=== PATIENT | female | born 1985 | race Caucasian/White ===

== ENCOUNTER 2016-12-29 23:46 | Inpatient (IN) | payer BC, OTHER ==
[2016-12-30] MEDS ORDERED: HYDROmorphone 0.5 MG/0.5 ML Syringe IVPUSH ONE ×2 (01:10→02:59)
[2016-12-30] MEDS ORDERED: Ondansetron 4 MG/2 ML SDV IVPUSH ONE (01:10)
[2016-12-30] MEDS ORDERED: Sodium Chloride 0.9% 1,000 ML IV SCH ×2 (01:15→03:00)
--- NOTE | 2016-12-30 01:38 | EDM.PDOC ---
ED HPI GENERAL MEDICAL PROBLEM - General Chief Complaint: Abdominal Pain Stated Complaint: RT LOWER ABD PAIN Time Seen by Provider: 12/30/16 00:50 Source of Information: Reports: Patient History Limitations: Reports: No Limitations - History of Present Illness INITIAL COMMENTS - FREE TEXT/NARRATIVE: pt started having rt lower abdomnal pain this am. This has been persistent during the day. She has vomited once just prior to arrival. She had a normal bm today. She does have a history of chrons but has not had any recent problem. 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 She does have a 99 temp tonight. ) HEENT: Reports: No Symptoms Respiratory: Reports: No Symptoms Cardiovascular: Reports: No Symptoms Endocrine: Reports: No Symptoms GI/Abdominal: Reports: Abdominal Pain, Nausea, Vomiting, Other (pt has pain in the rt lower abdoman. ) : Reports: No Symptoms Musculoskeletal: Reports: No Symptoms Skin: Reports: No Symptoms ED EXAM, GI/ABD - Physical Exam Exam: See Below Text/Narrative:: pt arrived with rt lower abdomanal pain. She has vomited once. She states this started this am and has gotten worse. Exam Limited By: No Limitations General Appearance: Alert, Moderate Distress Eyes: Bilateral: Normal Appearance, EOMI Ears: Normal TMs Nose: Normal Inspection Throat/Mouth: Normal Inspection Head: Atraumatic Neck: Normal Inspection Respiratory/Chest: No Respiratory Distress Cardiovascular: Regular Rate, Rhythm GI/Abdominal: Tenderness, Rebound (Female) Exam: Deferred Rectal (Female) Exam: Deferred Back Exam: Normal Inspection Extremities: Normal Inspection Neurological: Alert, Oriented, Normal Cognition Psychiatric: Normal Affect Course - Vital Signs Last Recorded V/S: Last Vital Signs Temp 37.3 C 12/30/16 00:43 Pulse 92 12/30/16 03:05 Resp 16 12/30/16 03:05 BP 131/76 12/30/16 03:05 Pulse Ox 94 L 12/30/16 03:05 - Orders/Labs/Meds Orders: Active Orders 24 hr Category Date Time Status Abdomen Pelvis w Cont [CT] Stat Exams 12/30/16 01:29 Ordered Sodium Chloride 0.9% [Normal Saline] 1,000 ml Med 12/30/16 01:15 Active IV ASDIRECTED Sodium Chloride 0.9% [Normal Saline] 1,000 ml Med 12/30/16 03:00 Active IV ASDIRECTED Medication Orders Sodium Chloride (Normal Saline) 1,000 mls @ 999 mls/hr IV ASDIRECTED CORAZON Last Admin: 12/30/16 01:38 Dose: 999 mls/hr Sodium Chloride (Normal Saline) 1,000 mls @ 250 mls/hr IV ASDIRECTED CORAZON Last Admin: 12/30/16 02:59 Dose: 250 mls/hr Labs: Laboratory Tests 12/30/16 12/30/16 12/30/16 Range/Units 00:34 00:34 00:34 WBC 14.9 H (4.5-11.0) K/uL RBC 4.41 (3.30-5.50) M/uL Hgb 12.4 (12.0-15.0) g/dL Hct 36.7 (36.0-48.0) % MCV 83 (80-98) fL MCH 28 (27-31) pg MCHC 34 (32-36) % Plt Count 198 (150-400) K/uL Neut % (Auto) 80 H (36-66) % Lymph % (Auto) 9 L (24-44) % Eagle % (Auto) 10 H (2-6) % Eos % (Auto) 1 L (2-4) % Baso % (Auto) 0 (0-1) % Sodium 138 L (140-148) mmol/L Potassium 3.7 (3.6-5.2) mmol/L Chloride 105 (100-108) mmol/L Carbon Dioxide 25 (21-32) mmol/L Anion Gap 11.7 (5.0-14.0) mmol/L BUN 12 (7-18) mg/dL Creatinine 0.7 (0.6-1.0) mg/dL Est Cr Clr Drug Dosing 99.63 mL/min Estimated GFR (MDRD) > 60 (>60) Glucose 114 H (74-106) mg/dL Calcium 8.3 L (8.5-10.1) mg/dL Total Bilirubin 0.6 (0.2-1.0) mg/dL AST 11 L (15-37) U/L ALT 15 (12-78) U/L Alkaline Phosphatase 45 L (46-116) U/L C-Reactive Protein 3.53 H (0.0-0.3) mg/dL Total Protein 7.2 (6.4-8.2) g/dL Albumin 3.6 (3.4-5.0) g/dL Globulin 3.6 H (2.3-3.5) g/dL Albumin/Globulin Ratio 1.0 L (1.2-2.2) Urine Color Urine Appearance Urine pH (4.5-8.0) Ur Specific [place] (1.008-1.030) Urine Protein (NEGATIVE) mg/dL Urine Glucose (UA) (NEGATIVE) mg/dL Urine Ketones (NEGATIVE) mg/dL Urine Occult Blood (NEGATIVE) Urine Nitrite (NEGATIVE) Urine Bilirubin (NEGATIVE) Urine Urobilinogen (NORMAL) mg/dL Ur Leukocyte Esterase (NEGATIVE) Urine RBC (0-5) Urine WBC (0-5) Ur Epithelial Cells Amorphous Sediment Urine Bacteria Urine Mucus Urine HCG, Qual 12/30/16 12/30/16 Range/Units 01:16 01:57 WBC (4.5-11.0) K/uL RBC (3.30-5.50) M/uL Hgb (12.0-15.0) g/dL Hct (36.0-48.0) % MCV (80-98) fL MCH (27-31) pg MCHC (32-36) % Plt Count (150-400) K/uL Neut % (Auto) (36-66) % Lymph % (Auto) (24-44) % Eagle % (Auto) (2-6) % Eos % (Auto) (2-4) % Baso % (Auto) (0-1) % Sodium (140-148) mmol/L Potassium (3.6-5.2) mmol/L Chloride (100-108) mmol/L Carbon Dioxide (21-32) mmol/L Anion Gap (5.0-14.0) mmol/L BUN (7-18) mg/dL Creatinine (0.6-1.0) mg/dL Est Cr Clr Drug Dosing mL/min Estimated GFR (MDRD) (>60) Glucose (74-106) mg/dL Calcium (8.5-10.1) mg/dL Total Bilirubin (0.2-1.0) mg/dL AST (15-37) U/L ALT (12-78) U/L Alkaline Phosphatase (46-116) U/L C-Reactive Protein (0.0-0.3) mg/dL Total Protein (6.4-8.2) g/dL Albumin (3.4-5.0) g/dL Globulin (2.3-3.5) g/dL Albumin/Globulin Ratio (1.2-2.2) Urine Color Yellow Urine Appearance Clear Urine pH 5.0 (4.5-8.0) Ur Specific [place] 1.020 (1.008-1.030) Urine Protein Negative (NEGATIVE) mg/dL Urine Glucose (UA) Normal (NEGATIVE) mg/dL Urine Ketones 15 H (NEGATIVE) mg/dL Urine Occult Blood Negative (NEGATIVE) Urine Nitrite Negative (NEGATIVE) Urine Bilirubin Small (NEGATIVE) Urine Urobilinogen Normal (NORMAL) mg/dL Ur Leukocyte Esterase Small (NEGATIVE) Urine RBC 0-5 (0-5) Urine WBC 0-5 (0-5) Ur Epithelial Cells Moderate Amorphous Sediment Not seen Urine Bacteria Moderate Urine Mucus Not seen Urine HCG, Qual Negative Meds: Medications Generic Name Dose Route Start Last Admin Trade Name Freq PRN Reason Stop Dose Admin Sodium Chloride 1,000 mls @ 999 mls/hr 12/30/16 01:15 12/30/16 01:38 Normal Saline IV 999 mls/hr ASDIRECTED CORAZON Administration Sodium Chloride 1,000 mls @ 250 mls/hr 12/30/16 03:00 12/30/16 02:59 Normal Saline IV 250 mls/hr ASDIRECTED CORAZON Administration Discontinued Medications Generic Name Dose Route Start Last Admin Trade Name Kate PRN Reason Stop Dose Admin Hydromorphone HCl 0.5 mg 12/30/16 01:10 12/30/16 01:42 Dilaudid IVPUSH 12/30/16 01:11 0.5 mg ONETIME ONE Administration Hydromorphone HCl 0.5 mg 12/30/16 02:59 12/30/16 03:03 Dilaudid IVPUSH 12/30/16 03:00 0.5 mg ONETIME ONE Administration Sodium Chloride 79 mls @ 3.9 mls/sec 12/30/16 01:45 12/30/16 02:07 Normal Saline IV 12/30/16 01:46 3.9 mls/sec ASDIRECTED STA Administration Iopamidol 128 ml 12/30/16 01:45 12/30/16 02:07 Isovue-300 (61%) IV 12/30/16 01:46 150 ml . DIRECTED STA Administration Ondansetron HCl 4 mg 12/30/16 01:10 12/30/16 01:46 Zofran IVPUSH 12/30/16 01:11 4 mg ONETIME ONE Administration - Re-Assessments/Exams Free Text/Narrative Re-Assessment/Exam: 12/30/16 02:09 wbc is elevated at 14,900. Her crp is 3.45. 12/30/16 03:20 cat scan revealed a acute apendicitis. Dr Marks will do her first case in the am. Departure - Departure Time of Disposition: 03:21 Disposition: Admitted As Inpatient 65 Condition: fair Clinical Impression: Acute appendicitis - Discharge Information Forms: ED Department Discharge Care Plan Goals: admit to Dr Marks - My Orders Last 24 Hours: My Active Orders 12/30/16 01:15 Sodium Chloride 0.9% [Normal Saline] 1,000 ml IV ASDIRECTED 12/30/16 01:29 Abdomen Pelvis w Cont [CT] Stat 12/30/16 03:00 Sodium Chloride 0.9% [Normal Saline] 1,000 ml IV ASDIRECTED - Assessment/Plan Last 24 Hours: My Active Orders 12/30/16 01:15 Sodium Chloride 0.9% [Normal Saline] 1,000 ml IV ASDIRECTED 12/30/16 01:29 Abdomen Pelvis w Cont [CT] Stat 12/30/16 03:00 Sodium Chloride 0.9% [Normal Saline] 1,000 ml IV ASDIRECTED
[2016-12-30] MEDS ORDERED: Iopamidol 612 MG/ML 150 ML Bottle IV STA (01:45)
[2016-12-30] MEDS ORDERED: HYDROmorphone/Normal Saline 15 MG/30 ML PCA IV SCH ×2 (04:15→07:30)
[2016-12-30] MEDS ORDERED: Ondansetron 4 MG/2 ML SDV IVPUSH PRN ×2 (04:16→09:30)
[2016-12-30] MEDS ORDERED: Ampicillin/Sulbactam Na 3 GM in Sodium Chloride 0.9% 100 ML IV SCH (04:30)
[2016-12-30] MEDS ORDERED: Bupivacaine 0.5%/EPINEPHrine 1:200,000 50 ML MDV ONE (06:40)
[2016-12-30] MEDS ORDERED: Ondansetron 4 MG/2 ML SDV ONE (07:02)
[2016-12-30] MEDS ORDERED: Midazolam 1 MG/ML 2 ML SDV ONE (07:02)
[2016-12-30] MEDS ORDERED: Rocuronium 50 MG/5 ML Vial ONE (07:02)
[2016-12-30] MEDS ORDERED: fentaNYL 250 MCG/5 ML SDV ONE (07:02)
[2016-12-30] MEDS ORDERED: Dexamethasone 4 MG/ML SDV ONE (07:02)
[2016-12-30] MEDS ORDERED: Neostigmine Methylsulfate 1 MG/ML 5 ML Syringe ONE (07:02)
[2016-12-30] MEDS ORDERED: Propofol 200 MG/20 ML SDV ONE (07:02)
[2016-12-30] MEDS ORDERED: Naloxone 0.4 MG/ML SDV IV PRN (07:24)
[2016-12-30] MEDS ORDERED: Lactated Ringers 1,000 ML ONE (07:29)
[2016-12-30] MEDS: Dextrose 5%-Lactated Ringers 1,000 ML IV SCH ×2 (10:37→19:39)
[2016-12-30] MEDS: Pantoprazole 40 MG Vial IV SCH (10:37)
[2016-12-30] MEDS: Ampicillin/Sulbactam Na 3 GM in Sodium Chloride 0.9% 100 ML IV SCH ×2 (12:03→18:03)
[2016-12-30] MEDS: Aztreonam/Dextrose-Water 1 GM in Premix Bag 1 BAG IV SCH ×2 (14:53→21:20)
[2016-12-31] MEDS: Ampicillin/Sulbactam Na 3 GM in Sodium Chloride 0.9% 100 ML IV SCH ×5 (00:05→23:17)
[2016-12-31] MEDS: Dextrose 5%-Lactated Ringers 1,000 ML IV SCH (03:19)
[2016-12-31] MEDS: Aztreonam/Dextrose-Water 1 GM in Premix Bag 1 BAG IV SCH ×3 (06:20→22:10)
[2016-12-31] MEDS: Acetaminophen/HYDROcodone 325-5 MG Tab PO PRN ×3 (10:06→22:08)
[2016-12-31] MEDS: Pantoprazole 40 MG Vial IV SCH (10:06)
[2016-12-31] MEDS: Bisacodyl 5 MG Tab PO SCH ×2 (10:07→22:08)
[2016-12-31] MEDS: Docusate Sodium 100 MG Cap PO SCH ×2 (10:07→22:08)
--- NOTE | 2016-12-31 11:01 | PN ---
DATE OF SERVICE: 12/31/2016 The patient has been afebrile with stable vital signs. No nausea has been noted overnight. We will begin a full-liquid diet today and advance to regular diet as tolerated. Start some Colace along with Dulcolax oral tablets. She may be ready for discharge home tomorrow. Sanket Marks MD /[id number]
[2016-12-31] MEDS ORDERED: Dextrose 5%-Lactated Ringers 1,000 ML IV SCH (11:45)
[2017-01-01] MEDS: Ampicillin/Sulbactam Na 3 GM in Sodium Chloride 0.9% 100 ML IV SCH (05:26)
[2017-01-01] MEDS: Aztreonam/Dextrose-Water 1 GM in Premix Bag 1 BAG IV SCH (05:27)
[2017-01-01 08:36] VITALS: BP 117/74
[2017-01-01] MEDS: Acetaminophen/HYDROcodone 325-5 MG Tab PO PRN (10:00)
[2017-01-01] MEDS ORDERED: Pantoprazole 40 MG Tab.CR PO SCH (10:00)
[2017-01-01] MEDS: Docusate Sodium 100 MG Cap PO SCH (10:01)
[2017-01-01] MEDS: Bisacodyl 5 MG Tab PO SCH (10:02)
--- NOTE | 2017-01-02 01:12 | DISCH ---
ADMISSION DIAGNOSIS: Acute appendicitis. DISCHARGE DIAGNOSES: Laparoscopic appendectomy for acute appendicitis. HISTORY: Lynda Quevedo developed right lower quadrant abdominal pain, presented to the ER after preoperative evaluation, discussion of possible risks and possible complications. She wished to proceed with some surgical procedure. HOSPITAL COURSE: Lynda had her surgery on 11/29/2016. She had no operative complications. On postop day 1, she was started on a diet and advanced as tolerated. She was changed to oral pain medication. On postop day 2, she was able to be discharged to home. Vital signs were stable. Activity was good and pain was well controlled. OBJECTIVE: GENERAL: Lynda Quevedo is a 31-year-old female. VITAL SIGNS: Height is 5 feet 4 inches. Weight is 192 pounds. TPR is 98.7, 86, 20, blood pressure 117/74. HEENT: Negative. NECK: Supple. HEART: Regular rate and rhythm. LUNGS: Clear. ABDOMEN: Incisions looked good. EDUARDO drain was draining a light serosanguineous drainage. This was discontinued, 4x4s placed over EDUARDO drain site. EXTREMITIES: Without peripheral edema. DISPOSITION: Discharged to home. CONDITION: Stable and improving. FOLLOWUP APPOINTMENTS: Marlene Monae PA-C on 01/09/2017 at 10:00 a.m. HOME MEDICATIONS: 1. Fombell 5/325 mg 1 to 2 every 4 hours p.r.n. pain #50. 2. Augmentin 875 mg 1 tablet b.i.d. for 5 days. 3. Colace 100 mg oral twice daily. 4. Zofran 4 mg ODT q.4 hours p.r.n. nausea. 5. Discontinue taking the tramadol. DIET AFTER DISCHARGE: Usual diet as tolerated. Drink 8 to 10 glasses of water a day. ACTIVITY: No lifting greater than 10 pounds for 2 weeks[address]riving, do not drive on pain medication. May shower. Notify provider if any fever, increased pain, nausea, or vomiting. Wound incision care. Keep site clean and dry. Wear abdominal binder for 2 weeks and as tolerated. Special instruction, use incentive spirometer 10 times every hour while awake for 2 weeks.
--- NOTE | 2017-01-04 14:43 | OR ---
DATE OF PROCEDURE: 12/30/2016 PREOPERATIVE DIAGNOSIS: Acute appendicitis. POSTOPERATIVE DIAGNOSES: 1. Acute appendicitis with marked inflammation and necrosis of adjacent cecal base. 2. Pericolonic/periappendiceal abscess. OPERATIVE PROCEDURE: Diagnostic laparoscopy with: 1. Partial cecectomy with removal of attached overlying appendix ([id number]). 2. Drainage of pericolonic/periappendiceal abscess ([id number]). ANESTHESIA: General. SKATE SHOP ATTENDANT: 1. Marlene Monae PA-C. 2. CONCHIS Mustafa student. INDICATIONS FOR PROCEDURE: This is a 31-year-old presenting overnight with a picture of acute appendicitis. A CT scan confirmed an inflamed appendicitis. Plan is to proceed with a diagnostic laparoscopy, laparotomy if needed and appendectomy with other procedures as indicated. Potential risks including bleeding, infection, leaks from various GI tract closures such as appendectomy stump, possibility of needing additional procedures beyond appendectomy depending on operative findings, as well as possibility of cardiopulmonary, septic, or hemorrhagic complications leading to were all discussed, and the patient wishes to proceed. DETAILS OF THE PROCEDURE: The patient was taken to the operating room and placed in the supine position. After general endotracheal anesthesia was induced, a Mcgrath catheter was inserted and the abdomen was prepped and draped. Three fingerbreadths superior into the left subxiphoid process, a transverse incision was made and the peritoneal cavity entered under direct vision with Optiview trocar inflated to 15 mmHg pressure with CO2. Laparoscope was then reinserted and no underlying trocar insertion site injuries were seen. Following this, 12-mm trocar was placed in the right upper quadrant as well as left lower quadrant and the abdomen examined. The patient was having an acute appendicitis. There was some purulent fluid adjacent to the appendix as well as the cecum. As one dissected, it became evident there was some necrosis of the appendix, which extended upward onto include the cecum. Given this, a decision was made to proceed with a partial cecectomy in order to provide a more satisfactory layer of tissue for the closure. The mesoappendix was then divided with Harmonic scalpel and this then allowed upward mobility of the appendix and the cecum was then divided roughly 2 cm away from the appendiceal base with a INESSA purple load. The staple line appeared to be nicely intact and hemostatic at this point. The specimen was placed into the specimen container and brought out through the left lower quadrant trocar site. During the course of the dissection, the purulent material adjacent to the cecum was then evacuated. Cultures of this were obtained, and at this point, no further problems were noted. Gabe-Parish drain was then taken to the small 5-mm trocar site, placed in the right flank, and draped across appendiceal stump and from there into the pelvis. The trocars were sequentially removed and the fascia at each site closed with 0 Vicryl stitch and the skin with 6-0 Vicryl skin stitch. It was felt reasonable to close the left lower quadrant trocar site as the specimen had been delivered through the specimen bag without any contact to the soft tissues during that process. The drain incision was closed with some 4-0 Vicryl skin stitch and dressing was applied. The patient was taken to the recovery room in satisfactory condition. Physician laboratory assistant, Marlene Monae PA-C, played an essential role in assisting in this case, helping to position the patient, retract structures as needed, as well as suturing and cutting the sutures as indicated. Her presence improved the patient safety and decreased operative time. Sanket Marks MD /[id number]
== END 2017-01-01 10:25 | disposition home or self-care (01) | DRG 221 ==
LOC: JP.ED 23:46 → JP.ICU 12-30 03:00
PROVIDERS: ADMIT Surgery; ATTEND Surgery
PROC: 0DBH4ZZ Excision of Cecum, Percutaneous Endoscopic Approach (ICD-10-PCS; principal; 2016-12-30)
PROC: 0W9G4ZX Drainage of Peritoneal Cavity, Percutaneous Endoscopic Approach, Diagnostic (ICD-10-PCS; principal; 2016-12-30)
PROC: 0DTJ4ZZ Resection of Appendix, Percutaneous Endoscopic Approach (ICD-10-PCS; principal; 2016-12-30)
DX: K35.3 Acute appendicitis with localized peritonitis (principal); Z87.19 Personal history of other diseases of the digestive system
CPT/HCPCS: 36415; 74177; 80053; 81001; 81025; 85025; 86140; 87070; 87075; 87205; 88304; 96361; 96374; 96375; 96376; 99285-25; A9270-GY; C9113; J0295; J1100; J1170; J2250; J2405; J2704; J3010; J3490; J7030; J7040; J7042; J7050; J7120; S0073

== ENCOUNTER 2018-10-17 07:30 | Emergency (ER) | payer BC ==
[2018-10-17 07:44] VITALS: BP 131/86
--- NOTE | 2018-10-17 08:08 | EDM.PDOC ---
ED HPI GENERAL MEDICAL PROBLEM - General Chief Complaint: Gastrointestinal Problem Stated Complaint: BLOODY STOOLS Time Seen by Provider: 10/17/18 07:55 Source of Information: Reports: Patient, Old Records, RN History Limitations: Reports: No Limitations - History of Present Illness INITIAL COMMENTS - FREE TEXT/NARRATIVE: 33 yo female with known Crohn's Dz and who is not currently on any tx for this presents today after a couple of bloody stools today. Has been experiencing increasing abdominal pain over the past few months. 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 Has a MARKETING DATA SPECIALIST in the clinic locally for primary care, but had not contacted her recently about her increasing sx's. Is not dizzy with standing today. Bleeding described as moderate in volume. No other current sx's. Onset: Today (Bleeding is new today.) Onset Date: 10/17/18 Onset Time: 06:30 Duration: Minutes:, Waxing/Waning Location: Reports: Abdomen Quality: Reports: Other (cramps) Severity: Moderate Improves with: Reports: None Worsens with: Reports: Other (slowly over time) Context: Reports: Other (Crohn's Dz) Associated Symptoms: Reports: No Other Symptoms. Denies: Fever/Chills, Nausea/ Vomiting Treatments PAIRER INSPECTOR: Reports: Other (see below) (none) - Related Data Allergies Allergy/AdvReac Type Severity Reaction Status Date / Time No Known Allergies Allergy Verified 10/17/18 07:46 Home Meds: Home Meds Ondansetron [Zofran ODT] 4 mg PO Q6H PRN #30 tab.dis 01/01/17 [Rx] Ketorolac [Toradol] 10 mg PO ASDIRECTED PRN 10/17/18 [History] predniSONE [Prednisone] 20 mg PO BID #14 tablet 10/17/18 [Rx] Past Medical History HEENT History: Reports: None Gastrointestinal History: Reports: Chronic Constipation, Chronic Diarrhea, Other (See Below) Other Gastrointestinal History: Crohns disease 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: - Infectious Disease History Infectious Disease History: Reports: Chicken Pox - Past Surgical History Head Surgeries/Procedures: Reports: None HEENT Surgical History: Reports: Adenoidectomy, Oral Surgery, Tonsillectomy GI Surgical History: Reports: Appendectomy, Hernia, Inguinal Dermatological Surgical History: Reports: None Social & Family History - Tobacco Use Smoking Status *Q: Never Smoker Second Hand Smoke Exposure: No - Caffeine Use Caffeine Use: Reports: Coffee, Energy Drinks - Recreational Drug Use Recreational Drug Use: No ED ROS GENERAL - Review of Systems Review Of Systems: See Below Constitutional: Reports: No Symptoms HEENT: Reports: No Symptoms Respiratory: Reports: No Symptoms Cardiovascular: Reports: No Symptoms Endocrine: Reports: No Symptoms GI/Abdominal: Reports: Abdominal Pain, Bloody Stool, Hematochezia. Denies: Black Stool, Constipation, Diarrhea, Distension, Flatus, Hematemesis, Melena, Nausea, Vomiting : Reports: No Symptoms Musculoskeletal: Reports: No Symptoms Skin: Reports: No Symptoms Neurological: Reports: No Symptoms Psychiatric: Reports: No Symptoms ED EXAM, GI/ABD - Physical Exam Exam: See Below Exam Limited By: No Limitations General Appearance: Alert, WD/WN, No Apparent Distress Eyes: Bilateral: Normal Appearance Ears: Normal External Exam, Normal Canal, Hearing Grossly Normal, Normal TMs Nose: Normal Inspection, No Blood Throat/Mouth: Normal Inspection, Normal Lips, Normal Oropharynx, Normal Voice, No Airway Compromise Head: Atraumatic, Normocephalic Neck: Normal Inspection Respiratory/Chest: No Respiratory Distress, Lungs Clear, Normal Breath Sounds, No Accessory Muscle Use Cardiovascular: Regular Rate, Rhythm, No Edema GI/Abdominal Exam: Normal Bowel Sounds, Soft, No Distention, Tender (mild, diffuse). No: Non-Tender, Distended, Guarding, Rigid, Rebound, Hernia Back Exam: Normal Inspection. No: CVA Tenderness (R), CVA Tenderness (L) Extremities: Normal Inspection, Normal Range of Motion, Non-Tender, No Pedal Edema Neurological: Alert, Oriented, CN II-XII Intact, Normal Cognition, No Motor/ Sensory Deficits Psychiatric: Normal Affect, Normal Mood Skin Exam: Warm, Dry, Intact, Normal Color, No Rash Course - Vital Signs Last Recorded V/S: Last Vital Signs Temp 35.7 C 10/17/18 07:45 Pulse 95 10/17/18 07:45 Resp 14 10/17/18 07:45 BP 131/86 10/17/18 07:45 Pulse Ox 98 10/17/18 07:45 Departure - Departure Time of Disposition: 08:20 Disposition: Home, Self-Care 01 Condition: Fair Clinical Impression: Acute Crohn's disease with rectal bleeding - Discharge Information *PRESCRIPTION DRUG MONITORING PROGRAM REVIEWED*: No *COPY OF PRESCRIPTION DRUG MONITORING REPORT IN PATIENT KEISHA: No Referrals: Aline Rdz PA [Primary Care Provider] - Forms: ED Department Discharge Additional Instructions: Take prednisone as directed. See your primary care provider within the week, you may need referral back to gastroenterology. Drink ample fluids. Acetaminophen as needed for pain relief.
== END 2018-10-17 08:26 | disposition home or self-care (01) ==
LOC: JP.ED 07:30
DX: K50.911 Crohn's disease, unspecified, with rectal bleeding (principal); Z79.899 Other long term (current) drug therapy
CPT/HCPCS: 99284

== ENCOUNTER 2018-10-23 07:30 | Emergency (ER) | payer BC ==
[2018-10-23 07:51] VITALS: BP 113/67
[2018-10-23] MEDS ORDERED: Sodium Chloride 0.9% 10 ML Syringe FLUSH PRN (08:05)
[2018-10-23] MEDS ORDERED: Ketorolac 30 MG/ML SDV IVPUSH ONE (08:07)
--- NOTE | 2018-10-23 08:10 | EDM.PDOC ---
ED HPI GENERAL MEDICAL PROBLEM - General Chief Complaint: Abdominal Pain Stated Complaint: ABDOMINAL PAIN Time Seen by Provider: 10/23/18 07:54 Source of Information: Reports: Patient, Family, Old Records, RN Notes Reviewed History Limitations: Reports: No Limitations - History of Present Illness INITIAL COMMENTS - FREE TEXT/NARRATIVE: 33-year-old female presents emergency department day complaint of abdominal pain , she is known history of Crohn's disease as well as inguinal hernia repair and appendicitis. States she's had bloody stools for little over a week was evaluated emergency department about one week prior felt to be Crohn's related given steroid bursts minimal effect. She states the abdominal pain does not necessarily feel like a Crohn's flareup did have a fever last night up to 100.4 no nausea vomiting no shortness breath chest pain Lower Abdomen Pain Score (Numeric/FACES): 6 - Related Data Allergies Allergy/AdvReac Type Severity Reaction Status Date / Time No Known Allergies Allergy Verified 10/23/18 07:42 Home Meds: Home Meds Ondansetron [Zofran ODT] 4 mg PO Q6H PRN #30 tab.dis 01/01/17 [Rx] Ketorolac [Toradol] 10 mg PO ASDIRECTED PRN 10/17/18 [History] Acetaminophen [Tylenol Extra Strength] 1,000 mg PO Q6H PRN 10/23/18 [History] Budesonide [Budesonide ER] 9 mg PO DAILY #7 tabdr...er 10/23/18 [Rx] predniSONE [Prednisone] 20 mg PO DAILY 10/23/18 [History] Past Medical History Gastrointestinal History: Reports: Chronic Constipation, Chronic Diarrhea, Inflammatory Bowel Disease, Other (See Below) Other Gastrointestinal History: Crohns disease Recent flair up 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: - Infectious Disease History Infectious Disease History: Reports: Chicken Pox - Past Surgical History Head Surgeries/Procedures: Reports: None HEENT Surgical History: Reports: Adenoidectomy, Oral Surgery, Tonsillectomy GI Surgical History: Reports: Appendectomy, Hernia, Inguinal Dermatological Surgical History: Reports: None Social & Family History - Tobacco Use Smoking Status *Q: Never Smoker Second Hand Smoke Exposure: No - Caffeine Use Caffeine Use: Reports: Energy Drinks, Soda - Alcohol Use Days Per Week of Alcohol Use: 0 - Recreational Drug Use Recreational Drug Use: No ED ROS GENERAL - Review of Systems Review Of Systems: See Below Constitutional: Reports: Fever HEENT: Reports: No Symptoms Respiratory: Reports: No Symptoms Cardiovascular: Reports: No Symptoms GI/Abdominal: Reports: Abdominal Pain, Bloody Stool, Diarrhea, Flatus. Denies: Nausea, Vomiting : Reports: No Symptoms Musculoskeletal: Reports: No Symptoms ED EXAM, GI/ABD - Physical Exam Exam: See Below Exam Limited By: No Limitations General Appearance: Alert, WD/WN, No Apparent Distress Respiratory/Chest: No Respiratory Distress, Lungs Clear, Normal Breath Sounds, No Accessory Muscle Use, Chest Non-Tender Cardiovascular: No Murmur, Tachycardia GI/Abdominal Exam: Soft, No Distention, Tender (Pelvic area tenderness), Abnormal Bowel Sounds (Decreased) Extremities: Normal Inspection, Non-Tender, No Pedal Edema Course - Vital Signs Last Recorded V/S: Last Vital Signs Temp 98.4 F 10/23/18 07:50 Pulse 115 H 10/23/18 07:50 Resp 16 10/23/18 07:50 BP 113/67 10/23/18 07:50 Pulse Ox 99 10/23/18 07:50 - Orders/Labs/Meds Orders: Active Orders 24 hr Category Date Time Status Peripheral IV Care [RC] . DIRECTED Care 10/23/18 08:05 Active Iopamidol [Isovue-300 (61%)] Med 10/23/18 09:09 Active 135 ml IV . DIRECTED PRN Lactated Ringers [Ringers, Lactated] 1,000 ml Med 10/23/18 08:15 Active IV ASDIRECTED Sodium Chloride 0.9% [Normal Saline] 85 ml Med 10/23/18 09:15 Active IV ASDIRECTED Sodium Chloride 0.9% [Saline Flush] Med 10/23/18 08:05 Active 10 ml FLUSH ASDIRECTED PRN Peripheral IV Insertion Adult [OM.PC] Urgent Oth 10/23/18 08:05 Ordered Medication Orders Lactated Ringer's (Ringers, Lactated) 1,000 mls @ 999 mls/hr IV ASDIRECTED CORAZON Last Admin: 10/23/18 08:20 Dose: 999 mls/hr Sodium Chloride (Normal Saline) 85 mls @ 3.5 mls/sec IV ASDIRECTED CORAZON Last Admin: 10/23/18 09:21 Dose: 3.5 mls/sec Iopamidol (Isovue-300 (61%)) 135 ml IV . DIRECTED PRN PRN Reason: RADIOLOGY EXAM Stop: 10/24/18 09:10 Last Admin: 10/23/18 09:21 Dose: 135 ml Sodium Chloride (Saline Flush) 10 ml FLUSH ASDIRECTED PRN PRN Reason: Keep Vein Open Labs: Laboratory Tests 10/23/18 10/23/18 10/23/18 Range/Units 08:20 08:20 08:20 WBC 14.4 H (4.5-11.0) K/uL RBC 3.34 (3.30-5.50) M/uL Hgb 9.0 L D (12.0-15.0) g/dL Hct 29.4 L (36.0-48.0) % MCV 88 (80-98) fL MCH 27 (27-31) pg MCHC 31 L (32-36) % Plt Count 365 (150-400) K/uL Neut % (Auto) 78 H (36-66) % Lymph % (Auto) 12 L (24-44) % Hardy % (Auto) 9 H (2-6) % Eos % (Auto) 1 L (2-4) % Baso % (Auto) 0 (0-1) % Sodium 138 L (140-148) mmol/L Potassium 3.4 L (3.6-5.2) mmol/L Chloride 103 (100-108) mmol/L Carbon Dioxide 28 (21-32) mmol/L Anion Gap 10.4 (5.0-14.0) mmol/L BUN 12 (7-18) mg/dL Creatinine 0.8 (0.6-1.0) mg/dL Est Cr Clr Drug Dosing 85.56 mL/min Estimated GFR (MDRD) > 60 (>60) Glucose 101 (74-106) mg/dL Lactic Acid 1.3 (0.4-2.0) mmol/L Calcium 8.6 (8.5-10.1) mg/dL Total Bilirubin 0.5 (0.2-1.0) mg/dL AST 9 L (15-37) U/L ALT 18 (12-78) U/L Alkaline Phosphatase 50 (46-116) U/L Total Protein 7.0 (6.4-8.2) g/dL Albumin 3.4 (3.4-5.0) g/dL Globulin 3.6 H (2.3-3.5) g/dL Albumin/Globulin Ratio 0.9 L (1.2-2.2) Lipase 100 (73-393) U/L Urine Color Urine Appearance Urine pH (4.5-8.0) Ur Specific [place] (1.008-1.030) Urine Protein (NEGATIVE) mg/dL Urine Glucose (UA) (NEGATIVE) mg/dL Urine Ketones (NEGATIVE) mg/dL Urine Occult Blood (NEGATIVE) Urine Nitrite (NEGATIVE) Urine Bilirubin (NEGATIVE) Urine Urobilinogen (NORMAL) mg/dL Ur Leukocyte Esterase (NEGATIVE) Urine RBC (0-5) Urine WBC (0-5) Ur Epithelial Cells Amorphous Sediment Urine Bacteria Urine Mucus Urine HCG, Qual 10/23/18 10/23/18 Range/Units 08:38 08:38 WBC (4.5-11.0) K/uL RBC (3.30-5.50) M/uL Hgb (12.0-15.0) g/dL Hct (36.0-48.0) % MCV (80-98) fL MCH (27-31) pg MCHC (32-36) % Plt Count (150-400) K/uL Neut % (Auto) (36-66) % Lymph % (Auto) (24-44) % Hardy % (Auto) (2-6) % Eos % (Auto) (2-4) % Baso % (Auto) (0-1) % Sodium (140-148) mmol/L Potassium (3.6-5.2) mmol/L Chloride (100-108) mmol/L Carbon Dioxide (21-32) mmol/L Anion Gap (5.0-14.0) mmol/L BUN (7-18) mg/dL Creatinine (0.6-1.0) mg/dL Est Cr Clr Drug Dosing mL/min Estimated GFR (MDRD) (>60) Glucose (74-106) mg/dL Lactic Acid (0.4-2.0) mmol/L Calcium (8.5-10.1) mg/dL Total Bilirubin (0.2-1.0) mg/dL AST (15-37) U/L ALT (12-78) U/L Alkaline Phosphatase (46-116) U/L Total Protein (6.4-8.2) g/dL Albumin (3.4-5.0) g/dL Globulin (2.3-3.5) g/dL Albumin/Globulin Ratio (1.2-2.2) Lipase (73-393) U/L Urine Color Yellow Urine Appearance Clear Urine pH 6.0 (4.5-8.0) Ur Specific [place] 1.010 (1.008-1.030) Urine Protein Negative (NEGATIVE) mg/dL Urine Glucose (UA) Normal (NEGATIVE) mg/dL Urine Ketones Negative (NEGATIVE) mg/dL Urine Occult Blood Negative (NEGATIVE) Urine Nitrite Negative (NEGATIVE) Urine Bilirubin Negative (NEGATIVE) Urine Urobilinogen Normal (NORMAL) mg/dL Ur Leukocyte Esterase Negative (NEGATIVE) Urine RBC 0-5 (0-5) Urine WBC 0-5 (0-5) Ur Epithelial Cells Few Amorphous Sediment Not seen Urine Bacteria Moderate Urine Mucus Not seen Urine HCG, Qual Negative Meds: Medications Generic Name Dose Route Start Last Admin Trade Name Freq PRN Reason Stop Dose Admin Lactated Ringer's 1,000 mls @ 999 mls/hr 10/23/18 08:15 10/23/18 08:20 Ringers, Lactated IV 999 mls/hr ASDIRECTED CORAZON Administration Sodium Chloride 85 mls @ 3.5 mls/sec 10/23/18 09:15 10/23/18 09:21 Normal Saline IV 3.5 mls/sec ASDIRECTED CORAZON Administration Iopamidol 135 ml 10/23/18 09:09 10/23/18 09:21 Isovue-300 (61%) IV 10/24/18 09:10 135 ml . DIRECTED PRN Administration RADIOLOGY EXAM Sodium Chloride 10 ml 10/23/18 08:05 Saline Flush FLUSH ASDIRECTED PRN Keep Vein Open Discontinued Medications Generic Name Dose Route Start Last Admin Trade Name Freq PRN Reason Stop Dose Admin Fentanyl 50 mcg 10/23/18 10:29 Sublimaze IVPUSH 10/23/18 10:30 ONETIME ONE Ketorolac Tromethamine 30 mg 10/23/18 08:07 10/23/18 08:29 Toradol IVPUSH 10/23/18 08:08 30 mg ONETIME ONE Administration Methylprednisolone Sodium Succinate 125 mg 10/23/18 10:29 Solu-Medrol IVPUSH 10/23/18 10:30 ONETIME ONE Departure - Departure Time of Disposition: 10:38 Disposition: Home, Self-Care 01 Condition: Fair Clinical Impression: Crohns disease Qualifiers: Gastrointestinal tract location: small intestine Digestive disease complication type: with rectal bleeding Qualified Code(s): K50.011 - Crohn's disease of small intestine with rectal bleeding - Discharge Information Prescriptions: Budesonide [Budesonide ER] 9 mg PO DAILY #7 tabdr...er Referrals: Aline Rdz PA [Primary Care Provider] - Forms: ED Department Discharge Additional Instructions: Plan is to take budesonide once a day for the next 4 weeks, start tomorrow stop your prednisone, we have set up a consultation with the final inspector movement assembly at [facility] they should contact you for a follow-up appointment , please follow-up with your primary care the next 3-5 days for update and reevaluation, he medications have been faxed to [facility] - My Orders Last 24 Hours: My Active Orders 10/23/18 08:05 Peripheral IV Care [RC] . DIRECTED Sodium Chloride 0.9% [Saline Flush] 10 ml FLUSH ASDIRECTED PRN Peripheral IV Insertion Adult [OM.PC] Urgent 10/23/18 08:15 Lactated Ringers [Ringers, Lactated] 1,000 ml IV ASDIRECTED 10/23/18 09:09 Iopamidol [Isovue-300 (61%)] 135 ml IV . DIRECTED PRN 10/23/18 09:15 Sodium Chloride 0.9% [Normal Saline] 85 ml IV ASDIRECTED - Assessment/Plan Last 24 Hours: My Active Orders 10/23/18 08:05 Peripheral IV Care [RC] . DIRECTED Sodium Chloride 0.9% [Saline Flush] 10 ml FLUSH ASDIRECTED PRN Peripheral IV Insertion Adult [OM.PC] Urgent 10/23/18 08:15 Lactated Ringers [Ringers, Lactated] 1,000 ml IV ASDIRECTED 10/23/18 09:09 Iopamidol [Isovue-300 (61%)] 135 ml IV . DIRECTED PRN 10/23/18 09:15 Sodium Chloride 0.9% [Normal Saline] 85 ml IV ASDIRECTED Plan: Assessment Acuity = acute Site and laterality = Crohn's flareup Etiology = unknown etiology Manifestations = abdominal pain, fever, bloody diarrhea, anemia Location of injury = Home Lab values = WBC elevated 14.4 consistent leukocytosis, hemoglobin low at 9.0 consistent normochromic anemia urinalysis unremarkable beta-hCG is negative CT scan reveals the following 1. There is CT evidence for active Crohn`s disease involving the distal small bowel and sigmoid colon as well. 2. There is an area of narrowing within the central lower abdomen small bowel loops which may simply reflect active Crohn`s disease. An adhesive band could not be entirely excluded. Proximal to that this is a dilated segment of small bowel. Plan She did receive 125 mg Solu-Medrol IV 1, will start budesonide 9 mg once a day at least for the next 4 weeks and try and reduce this medication by 3 mg increments until she can be evaluated by GI. We did put in a consult requests for final inspector movement assembly at [facility] she has followed with GI in the past has been on Humira with good success however has not had a colonoscopy or visit with GI for over 12 years, will follow-up with primary care in the meantime This note was dictated using 7-bit[employer] voice recognition software please call with any questions on syntax or grammar.
[2018-10-23] MEDS ORDERED: Lactated Ringers 1,000 ML IV SCH (08:15)
[2018-10-23] MEDS ORDERED: Iopamidol 612 MG/ML 150 ML Bottle IV PRN (09:09)
--- NOTE | 2018-10-23 09:59 | CRLCT ---
INDICATION: Pelvic pain. Bloody stools. History of Crohn`s disease. Prior appendectomy December 2016. TECHNIQUE: Contrast-enhanced abdominal pelvic CT. 135 cc nonionic Isovue-300 administered. COMPARISON: December 30, 2016. FINDINGS: There is CT evidence for active Crohn`s disease. Specifically there are distal small bowel loops within the central abdomen and right lower quadrant which are thick-walled and enhance with an area of narrowing in the central lower abdomen, image 30 series 3 and image 100 series 2. Proximal to this area of narrowing there is small bowel dilatation and it is uncertain if there is not only active Crohn`s disease but perhaps an adhesive band/partial small-bowel obstruction. Clinical correlation recommended. Careful radiographic follow up recommended. Fat stranding in the lower abdomen/pelvis with minimal free pelvic fluid. Additionally there is a 8 cm segment of sigmoid colon within the left lower quadrant image 112 series 2 which is thick-walled and edematous with pericolonic fluid/fat stranding. This is also likely related to Crohn`s disease and not diverticular disease as no diverticula are identified and the process is diffuse within this segment. When compared with the previous study the appendix has been removed. There are no drainable fluid collections. No free air. Clear included lung bases. The liver is negative for masses or biliary ductal dilatation. No splenomegaly. Normal-appearing pancreas, gallbladder, adrenal glands, kidneys, abdominal aorta, iliac arteries, and inferior vena cava. The uterus and urinary bladder are unremarkable. 2.1 cm right ovarian cyst. Postsurgical change right inguinal region likely from hernia repair. This was seen previously. IMPRESSION: 1. There is CT evidence for active Crohn`s disease involving the distal small bowel and sigmoid colon as well. 2. There is an area of narrowing within the central lower abdomen small bowel loops which may simply reflect active Crohn`s disease. An adhesive band could not be entirely excluded. Proximal to that this is a dilated segment of small bowel. 3. Absent appendix. No drainable fluid collection. No free air. Please note that all CT scans at this facility use dose modulation, iterative reconstruction, and/or weight-based dosing when appropriate to reduce radiation dose to as low as reasonably achievable. Dictated by Daryl Helton MD @ Oct 23 2018 9:48AM Signed by Dr. Daryl Helton @ Oct 23 2018 9:57AM
[2018-10-23] MEDS ORDERED: fentaNYL 100 MCG/2 ML SDV IVPUSH ONE (10:29)
[2018-10-23] MEDS ORDERED: methylPREDNISolone Sodium Succinate 125 MG/2 ML SDV IVPUSH ONE (10:29)
== END 2018-10-23 11:10 | disposition home or self-care (01) ==
LOC: JP.ED 07:30
DX: K50.011 Crohn's disease of small intestine with rectal bleeding (principal); Z79.899 Other long term (current) drug therapy
CPT/HCPCS: 36415; 74177; 80053; 81001; 81025; 83605; 83690; 85025; 96361; 96374; 96375; 99284; J1885; J2930; J3010; J7030; J7120

== ENCOUNTER 2020-07-03 08:17 | Emergency (ER) | payer BC ==
[2020-07-03 08:38] VITALS: BP 136/85; PULSE 97
--- NOTE | 2020-07-03 09:05 | EDM.PDOC ---
ED HPI GENERAL MEDICAL PROBLEM - General Chief Complaint: Abdominal Pain Stated Complaint: ABDOMINAL PAIN Time Seen by Provider: 07/03/20 08:52 Source of Information: Reports: Patient History Limitations: Reports: No Limitations - History of Present Illness INITIAL COMMENTS - FREE TEXT/NARRATIVE: Patient presents for evaluation of lower abdominal pain beginning last night, similar to previous episodes where she has had a flare of known Crohn's disease. She has been seen by gastroenterology on several occasions and was put on a trial of oral budesonide after a visit here 18 months ago. She eventually stopped it on her own because her insurance coverage for the medication resulted in weekly expenditures of several $100. Since then, she has done all right and has not had other significant flareups until just now. Nothing in particular seems to set things off. Overnight, she has used naproxen, Tylenol, SalonPas patches but has not really noticed a change in her pain. She has vomited twice since symptoms began but nothing today. Bowel movements are normal and not bloody or black. No fever or chills. To her, this feels like what she is accustomed to with previous Crohn's flares. Onset Date: 07/02/20 Location: Reports: Abdomen Quality: Reports: Burning Severity: Moderate Improves with: Reports: None Worsens with: Reports: Eating Associated Symptoms: Reports: Nausea/Vomiting. Denies: Diaphoresis, Fever/Chills Treatments MEAT MANAGER: Reports: Acetaminophen, NSAIDS, Other (see below) (Topical analgesic patches.) - Related Data Allergies Allergy/AdvReac Type Severity Reaction Status Date / Time adalimumab [From Humira] Allergy Anaphylactic Verified 07/03/20 08:27 Shock infliximab-dyyb Allergy Anaphylactic Verified 07/03/20 08:27 [From Inflectra] Shock ustekinumab [From Stelara] Allergy Anaphylactic Verified 07/03/20 08:27 Shock Home Meds: Home Meds Ondansetron [Zofran ODT] 4 mg PO Q6H PRN #30 tab.dis 01/01/17 [Rx] Cholecalciferol (Vitamin D3) [Vitamin D3] 1 tab PO DAILY 07/03/20 [History] Omeprazole 1 tab PO DAILY 07/03/20 [History] Past Medical History HEENT History: Reports: None Gastrointestinal History: Reports: Chronic Constipation, Chronic Diarrhea, Inflammatory Bowel Disease, Other (See Below) Other Gastrointestinal History: Crohns disease Recent flair up 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: - Infectious Disease History Infectious Disease History: Reports: Chicken Pox - Past Surgical History Head Surgeries/Procedures: Reports: None HEENT Surgical History: Reports: Adenoidectomy, Oral Surgery, Tonsillectomy GI Surgical History: Reports: Appendectomy, Hernia, Inguinal Dermatological Surgical History: Reports: None Social & Family History - Tobacco Use Tobacco Use Status *Q: Never Tobacco User - Caffeine Use Caffeine Use: Reports: Energy Drinks, Soda ED ROS GENERAL - Review of Systems Review Of Systems: See Below Constitutional: Reports: No Symptoms HEENT: Reports: No Symptoms Respiratory: Reports: No Symptoms Cardiovascular: Reports: No Symptoms GI/Abdominal: Reports: Abdominal Pain (Broad, lower abdominal pain.), Vomiting (2 episodes as described but none this morning.). Denies: Black Stool, Bloody Stool, Constipation, Diarrhea, Nausea : Reports: No Symptoms Musculoskeletal: Reports: No Symptoms ED EXAM, GI/ABD - Physical Exam Exam: See Below Text/Narrative:: This is an adult female interviewed in room 4. She is sitting up while we talk and that seems to be a position of comfort for her. She is not in acute severe distress. Exam Limited By: No Limitations General Appearance: Alert Respiratory/Chest: No Respiratory Distress Cardiovascular: Regular Rate, Rhythm (Borderline tachycardic.) GI/Abdominal Exam: Soft, Tender (Pain on palpation over the lower 1/3-1/2 of the abdomen diffusely.), Abnormal Bowel Sounds (Slightly decreased in frequency.). No: Distended, Guarding, Rigid Back Exam: Normal Inspection Extremities: Normal Inspection Course - Vital Signs Last Recorded V/S: Last Vital Signs Temp 36.2 C 07/03/20 08:37 Pulse 97 07/03/20 08:37 Resp BP 136/85 07/03/20 08:37 Pulse Ox 99 07/03/20 08:37 - Orders/Labs/Meds Labs: Laboratory Tests 07/03/20 07/03/20 Range/Units 09:17 09:17 WBC 9.6 (4.5-11.0) K/uL RBC 5.04 (3.30-5.50) M/uL Hgb 13.7 D (12.0-15.0) g/dL Hct 42.0 (36.0-48.0) % MCV 83 (80-98) fL MCH 27 (27-31) pg MCHC 33 (32-36) % Plt Count 280 (150-400) K/uL Neut % (Auto) 77 H (36-66) % Lymph % (Auto) 14 L (24-44) % [place] % (Auto) 7 H (2-6) % Eos % (Auto) 1 L (2-4) % Baso % (Auto) 0 (0-1) % Sodium 139 L (140-148) mmol/L Potassium 4.2 (3.6-5.2) mmol/L Chloride 103 (100-108) mmol/L Carbon Dioxide 24 (21-32) mmol/L Anion Gap 16.2 H (5.0-14.0) mmol/L BUN 11 (7-18) mg/dL Creatinine 0.9 (0.6-1.0) mg/dL Est Cr Clr Drug Dosing 74.62 mL/min Estimated GFR (MDRD) > 60 (>60) Glucose 108 H (74-106) mg/dL Calcium 8.4 L (8.5-10.1) mg/dL Total Bilirubin 0.4 (0.2-1.0) mg/dL AST 13 L (15-37) U/L ALT 24 (12-78) U/L Alkaline Phosphatase 49 (46-116) U/L C-Reactive Protein 0.42 H (0.0-0.3) mg/dL Total Protein 7.4 (6.4-8.2) g/dL Albumin 4.0 (3.4-5.0) g/dL Globulin 3.4 (2.3-3.5) g/dL Albumin/Globulin Ratio 1.2 (1.2-2.2) Lipase 94 (73-393) U/L - Re-Assessments/Exams Free Text/Narrative Re-Assessment/Exam: 07/03/20 09:19 I discussed that we will check some screening labs to see how things look today. Given her abdominal exam, I do not believe that imaging studies will change my course of action. She has not seen gastroenterology since September of this year, just before the Covid crisis arises. Visits with a number of carbonating stone cleaner have been virtual visits, not [id number], which is what she would prefer to do. She is thinking she probably will return to the [facility] carbonating stone cleaner she saw this spring but hopes that she is able to do the visit in person. When she has had flareups in the past, she typically would be on a prednisone taper over several weeks. We likely will end up doing that unless there are indications for other testing as part of the evaluation. She agrees with the plan. 07/03/20 17:12 I returned later to review test results which are essentially unrevealing. Given that her exam shows a soft but tender lower abdomen, this could be viral gastroenteritis or Crohn's disease flare up. She relates again that this has the feel of her previous Crohn's flares. She was sent with a prescription for prednisone 40 mg daily x7 days. She needs to schedule a clinic recheck appointment with her primary care team for 1 week from now, or sooner. If things worsen in any way, she should return here and we would need to do CT scanning at that point. After discussion with the patient, she is in agreement with the nonscan approach to her condition today. She was discharged in stable condition. Departure - Departure Time of Disposition: 10:29 Disposition: Home, Self-Care 01 Condition: Good Clinical Impression: Abdominal pain Qualifiers: Abdominal location: lower abdomen, unspecified Qualified Code(s): R10.30 - Lower abdominal pain, unspecified Crohns disease Qualifiers: Gastrointestinal tract location: small intestine Digestive disease complication type: with rectal bleeding Qualified Code(s): K50.011 - Crohn's disease of small intestine with rectal bleeding - Discharge Information Instructions: Short Bowel Syndrome Referrals: Aline Rdz PA [Primary Care Provider] - Forms: ED Department Discharge Additional Instructions: Begin prednisone today. You are being given a prescription to take 40 mg daily for the next week. Make an appointment to follow-up with primary care by the end of next week. If you are feeling better, they could determine at that point whether you would need additional prednisone or not. You are also given a prescription for 6 tablets of hydrocodone 5/325 mg to take as needed. Return to ER if feeling worse in any way. Sepsis Event Note (ED) - Evaluation Sepsis Screening Result: No Definite Risk - Focused Exam Vital Signs: Vital Signs Temp Pulse BP Pulse Ox 07/03/20 08:37 36.2 C 97 136/85 99
== END 2020-07-03 10:45 | disposition home or self-care (01) ==
LOC: JP.ED 08:17
DX: K50.011 Crohn's disease of small intestine with rectal bleeding (principal); K21.9 Gastro-esophageal reflux disease without esophagitis; Z88.8 Allergy status to other drugs, medicaments and biological substances; Z79.899 Other long term (current) drug therapy
CPT/HCPCS: 36415; 80053; 83690; 85025; 86140; 99283; 99284

== ENCOUNTER 2020-09-10 16:28 | Emergency (ER) | payer OTHER, BC ==
[2020-09-10] MEDS ORDERED: Iopamidol 612 MG/ML 100 ML Bottle IV SCH (17:45)
[2020-09-10] MEDS ORDERED: Sodium Chloride 0.9% 80 ML IV SCH (17:45)
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
[2020-09-10] MEDS ORDERED: fentaNYL 100 MCG/2 ML SDV IVPUSH ONE (18:05)
[2020-09-10] MEDS ORDERED: Ketorolac 30 MG/ML SDV IVPUSH ONE (18:05)
[2020-09-10] MEDS ORDERED: Bacitracin Oint 1 GM U/D Packet TOP ONE (18:07)
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
== END 2020-09-10 19:25 | disposition home or self-care (01) ==
LOC: JP.ED 16:28
DX: S22.22XA Fracture of body of sternum, initial encounter for closed fracture (principal); S30.1XXA Contusion of abdominal wall, initial encounter; S20.212A Contusion of left front wall of thorax, initial encounter; S80.02XA Contusion of left knee, initial encounter; S80.812A Abrasion, left lower leg, initial encounter; Z88.8 Allergy status to other drugs, medicaments and biological substances; Z79.899 Other long term (current) drug therapy; V86.59XA Driver of other special all-terrain or other off-road motor vehicle injured in nontraffic accident, initial encounter
CPT/HCPCS: 29505; 36415; 71260; 73552; 73590; 74177; 80053; 85025; 96374; 96375; 99284; J1885; J3010; Q9967

== ENCOUNTER 2021-06-11 07:25 | Day surgery (SDC) | payer BC, OTHER ==
[~2021-06-11 07:25] MED LIST: Midazolam 1 MG/ML 2 ML SDV ONE; Propofol 200 MG/20 ML SDV ONE; fentaNYL 100 MCG/2 ML SDV ONE
[2021-06-11] MEDS ORDERED: Sodium Chloride 0.9% 1,000 ML IV SCH (08:00)
[2021-06-11] MEDS ORDERED: Propofol 200 MG/20 ML SDV ONE (09:17)
[2021-06-11 10:39] VITALS: BP 123/81; PULSE 99
--- NOTE | 2021-06-11 13:02 | OR ---
DATE OF PROCEDURE: 06/11/2021 SURGEON: Yuri Khan MD PROCEDURE: 1. Esophagogastroduodenoscopy. 2. Colonoscopy. FINDINGS: 1. Inflammation at GE junction concerning for reflux disease (biopsied using cold biopsy forceps). 2. Random biopsies performed due to Crohn disease and a very mild inflammation of the ascending, sigmoid, and rectum. COMPLICATION: None. HOST HOSTESS: None. ANESTHESIA: MAC. PREOPERATIVE DIAGNOSIS: Crohn disease. POSTOPERATIVE DIAGNOSIS: Crohn disease. RISKS: Risks, benefits, alternatives, and limitations including, but not limited to infection, bleeding, perforation, false positive, and false negatives were explained to the patient and they wished to proceed. PROCEDURE IN DETAIL: The patient was placed in left lateral decubitus position. The EGD scope was introduced and advanced atraumatically to the second part of the duodenum. No evidence of duodenitis or ulceration. Within the stomach itself, there was no gastritis. No hiatal hernia. The GE junction had inflammation concerning for reflux disease, biopsied in all 4 quadrants using cold biopsy forceps. The remaining esophagus was inspected without abnormality. Digital rectal exam was performed. Scope was advanced atraumatically to the ileocecal valve. The scope was brought back to the ascending, transverse, and descending colon and retroflexed. In addition, the ileocecal valve was cannulated, no evidence of inflammation was noted. Random biopsies were performed of the very mild inflammation in a few locations. No abnormalities on retroflexion. Greater than 8 minutes was spent removing the scope. The prep was acceptable, approximately 90% of luminal surface could be seen. The patient tolerated procedure well. Yuri Khan MD /[id number]
== END 2021-06-11 10:43 | disposition home or self-care (01) ==
LOC: JP.SDS 07:25
PROVIDERS: ATTEND Surgery
DX: K50.90 Crohn's disease, unspecified, without complications (principal); K20.90 Esophagitis, unspecified without bleeding; K31.89 Other diseases of stomach and duodenum
CPT/HCPCS: 43239; 45380; 81025; J2250; J2704; J3010; J7030

== ENCOUNTER 2022-03-07 02:29 | Emergency (ER) | payer BC, OTHER ==
[2022-03-07 02:39] VITALS: BP 141/92; PULSE 85
[2022-03-07] MEDS ORDERED: Alum Hydrox/Mag Hydrox/Simeth 15 ML, Lidocaine 2% 15 ML PO ONE ×2 (02:41)
[2022-03-07 03:11] LABS: ESTIMATED GFR 84 mL/min (>60); TROPONIN I HIGH SENSITIVITY < 4.0 pg/mL (<=60.3)
[2022-03-07] MEDS ORDERED: Calcium Gluconate 10% 1 GM/10 ML SDV IVPUSH ONE (03:36)
[2022-03-07] MEDS ORDERED: Sodium Chloride 0.9% 10 ML Syringe FLUSH PRN (03:53)
== END 2022-03-07 04:14 | disposition home or self-care (01) ==
LOC: JP.ED 02:29
DX: K21.00 Gastro-esophageal reflux disease with esophagitis, without bleeding (principal); E83.51 Hypocalcemia; Z88.8 Allergy status to other drugs, medicaments and biological substances; Z86.16 Personal history of COVID-19
CPT/HCPCS: 36415; 80053; 84484; 85025; 85379; 85610; 85730; 93005; 96374; 99285; A9270; J0610; J3490

== ENCOUNTER 2022-03-30 01:34 | Emergency (ER) | payer BC ==
[2022-03-30] MEDS ORDERED: Sodium Chloride 0.9% 10 ML Syringe FLUSH PRN (02:19)
[2022-03-30 02:25] LABS: ESTIMATED GFR 97 mL/min (>60)
[2022-03-30] MEDS ORDERED: Sodium Chloride 0.9% 50 ML IV STA (03:07)
[2022-03-30] MEDS: Iopamidol 612 MG/ML 100 ML Bottle IV STA (03:17)
[2022-03-30 03:25] VITALS: BP 120/86; PULSE 91
== END 2022-03-30 04:33 | disposition home or self-care (01) ==
LOC: JP.ED 01:34
DX: K29.00 Acute gastritis without bleeding (principal); K80.20 Calculus of gallbladder without cholecystitis without obstruction; K21.9 Gastro-esophageal reflux disease without esophagitis; Z88.8 Allergy status to other drugs, medicaments and biological substances; Z79.899 Other long term (current) drug therapy; Z90.49 Acquired absence of other specified parts of digestive tract
CPT/HCPCS: 36415; 74177; 80053; 83690; 85025; 99284; J3490; Q9967

== ENCOUNTER 2022-04-22 06:23 | Day surgery (SDC) | payer BC ==
[2022-04-22] MEDS ORDERED: Indocyanine Green 25 MG SDV ONE (06:47)
[2022-04-22] MEDS ORDERED: Lidocaine 1% with EPINEPHrine 1:100,000 50 ML MDV ONE (06:53)
[2022-04-22] MEDS ORDERED: Bupivacaine 0.5% 50 ML MDV ONE (06:53)
[2022-04-22] MEDS ORDERED: Sodium Chloride 0.9% 1,000 ML IV SCH (07:00)
[2022-04-22 07:08] LABS: ESTIMATED GFR 97 mL/min (>60)
[2022-04-22] MEDS ORDERED: Succinylcholine 200 MG/10 ML MDV ONE (07:18)
[2022-04-22] MEDS ORDERED: fentaNYL 250 MCG/5 ML SDV ONE (07:18)
[2022-04-22] MEDS ORDERED: Glycopyrrolate 0.2 MG/ML 5 ML MDV ONE (07:18)
[2022-04-22] MEDS ORDERED: Dexamethasone 4 MG/ML SDV ONE (07:18)
[2022-04-22] MEDS ORDERED: Ondansetron 4 MG/2 ML SDV ONE (07:18)
[2022-04-22] MEDS ORDERED: Neostigmine Methylsulfate 1 MG/ML 5 ML Syringe ONE (07:18)
[2022-04-22] MEDS ORDERED: Propofol 200 MG/20 ML SDV ONE (07:18)
[2022-04-22] MEDS ORDERED: Rocuronium 50 MG/5 ML Vial ONE (07:18)
[2022-04-22] MEDS ORDERED: ceFAZolin 2 GM in Sodium Chloride 0.9% 50 ML IV ONE (07:30)
[2022-04-22] MEDS ORDERED: Sodium Chloride 0.9% 10 ML ONE (07:35)
[2022-04-22] MEDS: metroNIDAZOLE/Normal Saline 500 MG in Premix Bag 1 BAG IV ONE ×2 (07:40→08:01)
[2022-04-22] MEDS ORDERED: Scopolamine 1.5 MG Transdermal Patch ONE (07:56)
[2022-04-22] MEDS ORDERED: Ketorolac 30 MG/ML SDV ONE (07:57)
[2022-04-22] MEDS ORDERED: fentaNYL 100 MCG/2 ML SDV ONE (08:20)
[2022-04-22] MEDS ORDERED: Acetaminophen/HYDROcodone 325-5 MG Tab PO ONE (10:15)
[2022-04-22 10:48] VITALS: BP 114/68; PULSE 82
== END 2022-04-22 11:10 | disposition home or self-care (01) ==
LOC: JP.SDS 06:23
PROVIDERS: ATTEND Surgery
DX: K81.1 Chronic cholecystitis (principal); K83.8 Other specified diseases of biliary tract; K21.9 Gastro-esophageal reflux disease without esophagitis; E66.9 Obesity, unspecified
CPT/HCPCS: 36415; 47563; 80053; 84703; 85025; 88304; A9270; J0171; J0330; J0690; J1100; J1885; J2405; J2704; J2710; J2795; J3010; J3490; J7030

== ENCOUNTER 2022-08-21 19:23 | Emergency (ER) | payer BC ==
[2022-08-21 19:46] VITALS: BP 145/96; PULSE 85
== END 2022-08-21 20:10 | disposition home or self-care (01) ==
LOC: JP.ED 19:23
DX: S06.0X0A Concussion without loss of consciousness, initial encounter (principal); Z88.8 Allergy status to other drugs, medicaments and biological substances; Z79.899 Other long term (current) drug therapy; Z86.16 Personal history of COVID-19; Z90.49 Acquired absence of other specified parts of digestive tract; W01.10XA Fall on same level from slipping, tripping and stumbling with subsequent striking against unspecified object, initial encounter
CPT/HCPCS: 99282; 99283

== ENCOUNTER 2024-03-11 00:25 | Inpatient (IN) | payer BC ==
[2024-03-11 01:52] LABS: BASOPHILS ABSOLUTE AUTO 0.05 K/uL (0.00-0.10); BASOPHILS PERCENT AUTO 0.2 % (0.1-1.3); EOSINOPHILS ABSOLUTE AUTO 0.06 K/uL (0.00-0.40); EOSINOPHILS PERCENT AUTO 0.3 % (0.0-5.4); HEMATOCRIT 44.8 % (34.3-46.0); HEMOGLOBIN 15.6 g/dL (11.2-15.5); IMMATURE GRAN ABSOLUTE AUTO 0.07 K/uL (0.00-0.23); IMMATURE GRAN PERCENT AUTO 0.3 % (0.0-0.7); LYMPHOCYTES PERCENT AUTO 6.3 % (11.4-47.7); MEAN CORPUSCULAR HEMOGLOBIN 28.2 pg (31.6-35.5); MEAN CORPUSCULAR HGB CONC 34.8 g/dL (31.6-35.5); MEAN CORPUSCULAR VOLUME 80.9 fL (81.4-99.0); MONOCYTES ABSOLUTE AUTO 1.24 K/uL (0.20-0.90); NEUTROPHILS ABSOLUTE AUTO 17.79 K/uL (1.0-7.6); NEUTROPHILS PERCENT AUTO 86.9 % (40.0-78.1); PLATELET COUNT,PLT 348 K/uL (130-375); RED BLOOD CELL COUNT 5.54 M/uL (3.77-5.24); WHITE BLOOD CELL COUNT,WBC 20.5 K/uL (3.2-11.0)
[2024-03-11] MEDS: Ondansetron 4 MG/2 ML SDV IVPUSH ONE (01:53)
[2024-03-11] MEDS: fentaNYL 100 MCG/2 ML SDV IVPUSH ONE ×2 (01:58→04:05)
[2024-03-11] MEDS: Sodium Chloride 0.9% 1,000 ML IV STA (02:07)
[2024-03-11] MEDS: Sodium Chloride 0.9% 10 ML Syringe FLUSH PRN (02:07)
[2024-03-11 02:14] LABS: A/G RATIO 1.1 (1.2-2.2); ALANINE AMINOTRANSFERASE,ALT 19 U/L (12-78); ALBUMIN 4.9 g/dL (3.4-5.0); ALKALINE PHOSPHATASE 58 U/L (46-116); ANION GAP 15.8 mmol/L (5.0-14.0); ASPARTATE AMNIOTRANSFERASE,AST 13 U/L (15-37); BILIRUBIN TOTAL 0.8 mg/dL (0.2-1.0); BLOOD UREA NITROGEN,BUN 14 mg/dL (7-18); CALCIUM 9.8 mg/dL (8.5-10.1); CARBON DIOXIDE,CO2 25 mmol/L (21-32); CHLORIDE,CL 100 mmol/L (100-108); EST CRCL DRUG DOSING (CG) 67.29 mL/min; ESTIMATED GFR 73 mL/min (>60); GLUCOSE RANDOM 161 mg/dL (74-106); POTASSIUM,K 3.8 mmol/L (3.6-5.2); PROTEIN TOTAL,TP 9.3 g/dL (6.4-8.2); SODIUM,NA 137 mmol/L (140-148)
[2024-03-11] MEDS: Sodium Chloride 0.9% 80 ML IV STA (02:25)
[2024-03-11] MEDS: Iopamidol 612 MG/ML 100 ML Bottle IV STA (02:25)
[2024-03-11 02:55] LABS: APPEARANCE,URINE CLOUDY (CLEAR); BILIRUBIN,URINE SMALL (NEGATIVE); COLOR,URINE YELLOW (YELLOW); GLUCOSE,URINE NEGATIVE (NEGATIVE); KETONES,URINE 15 mg/dL (NEGATIVE); LEUKOCYTE ESTERASE,URINE TRACE (NEGATIVE); NITRITE,URINE NEGATIVE (NEGATIVE); OCCULT BLOOD,URINE NEGATIVE (NEGATIVE); PH,URINE 5.5 (5.0-8.0); PROTEIN,URINE 30 mg/dL (NEGATIVE); UROBILINOGEN,URINE 0.2 EU/dL (0.2-1.0)
[2024-03-11 03:03] LABS: AMORPHOUS SEDIMENT,URINE NOT SEEN; BACTERIA,URINE MANY; EPITHELIAL CELLS,URINE FEW; MUCUS,URINE FEW; RBC,URINE 0-5 (0-5)
[2024-03-11] MEDS: HYDROmorphone 1 MG/ML Syringe IVPUSH ONE (04:07)
[2024-03-11] MEDS ORDERED: Ondansetron 4 MG/2 ML SDV IVPUSH PRN (05:09)
[2024-03-11] MEDS ORDERED: HYDROmorphone 1 MG/ML Syringe IVPUSH PRN (05:09)
[2024-03-11] MEDS ORDERED: Naloxone 0.4 MG/ML SDV IVPUSH PRN (05:09)
[2024-03-11] MEDS: Pantoprazole 40 MG Vial IV SCH ×2 (05:27→08:45)
[2024-03-11] MEDS: Piperacillin/Tazobactam 4.5 GM in Sodium Chloride 0.9% 100 ML IV ONE (05:33)
[2024-03-11] MEDS: Lidocaine 4% Top Soln 50 ML Bottle MUCMEM ONE (05:41)
[2024-03-11] MEDS: Dextrose 5%-Lactated Ringers 1,000 ML IV SCH ×2 (06:39→10:21)
[2024-03-11] MEDS: Insulin Lispro 100 Unit/ML 3 ML KwikPen SUBCUT SCH (07:00)
[2024-03-11] MEDS: Piperacillin/Tazobactam/Dext 4.5 GM in Premix Bag 1 BAG IV SCH (08:44)
[2024-03-11] MEDS ORDERED: HYDROmorphone 0.5 MG/0.5 ML Syringe IVPUSH PRN (09:52)
[2024-03-11] MEDS: oxyCODONE 5 MG Tab PO PRN (10:18)
[2024-03-11] MEDS: methylPREDNISolone Sodium Succinate 125 MG/2 ML SDV IVPUSH ONE (10:19)
[2024-03-11 10:29] LABS: HEMOGLOBIN A1C 5.2 % (4.5-6.2)
[2024-03-11] MEDS ORDERED: Piperacillin/Tazobactam/Dext 4.5 GM in Premix Bag 1 BAG IV SCH (13:00)
[2024-03-11] MEDS: methylPREDNISolone Sodium Succinate 125 MG/2 ML SDV IVPUSH SCH (17:08)
[2024-03-12 05:29] LABS: HEMATOCRIT 34.4 % (34.3-46.0); HEMOGLOBIN 11.8 g/dL (11.2-15.5); MEAN CORPUSCULAR HEMOGLOBIN 27.9 pg (31.6-35.5); MEAN CORPUSCULAR HGB CONC 34.3 g/dL (31.6-35.5); MEAN CORPUSCULAR VOLUME 81.3 fL (81.4-99.0); RED BLOOD CELL COUNT 4.23 M/uL (3.77-5.24)
[2024-03-12 05:52] LABS: ANION GAP 12.6 mmol/L (5.0-14.0); CREATININE 0.6 mg/dL (0.6-1.0); EST CRCL DRUG DOSING (CG) 107.63 mL/min; POTASSIUM,K 3.6 mmol/L (3.6-5.2)
[2024-03-12] MEDS: Acetaminophen 325 MG Tab PO PRN (08:27)
[2024-03-12] MEDS: predniSONE 20 MG Tab PO SCH (08:28)
[2024-03-12] MEDS: Pantoprazole 40 MG Tab.CR PO SCH (20:42)
[2024-03-13 13:37] VITALS: BP 142/91; PULSE 87
== END 2024-03-13 14:00 | disposition home or self-care (01) | DRG 245 ==
LOC: JP.ED 00:25 → JP.2SS 04:30
PROVIDERS: ADMIT Hospitalist; ATTEND Internal Medicine
DX: K50.012 Crohn's disease of small intestine with intestinal obstruction (principal); K59.09 Other constipation; K21.9 Gastro-esophageal reflux disease without esophagitis; R73.09 Other abnormal glucose; Z88.8 Allergy status to other drugs, medicaments and biological substances; Z90.49 Acquired absence of other specified parts of digestive tract; Z90.89 Acquired absence of other organs; Z98.890 Other specified postprocedural states; Z79.899 Other long term (current) drug therapy
CPT/HCPCS: 36415; 74019; 74177; 80048; 80053; 81001; 82947; 83036; 83605; 83690; 84145; 85025; 85027; 96361; 96374; 96375; 99222; 99232; 99238; 99285; 99285-25; A9270-GY; J1170; J1815; J2405; J2470; J2543; J2919; J3010; J3490; J7030; J7121; J7512; Q9967